=== PATIENT | male | born 1970 | race African-American/Black ===

== ENCOUNTER 2021-12-23 12:17 | Outpatient (CLI) | payer OTHER | END 2021-12-23 12:18 | disposition home or self-care (01) | LOC: CSHMRI 12:17 | PROVIDERS: ATTEND Family Medicine | DX: S43.421D Sprain of right rotator cuff capsule, subsequent encounter (principal); S46.211D Strain of muscle, fascia and tendon of other parts of biceps, right arm, subsequent encounter; S46.011A Strain of muscle(s) and tendon(s) of the rotator cuff of right shoulder, initial encounter; S43.431A Superior glenoid labrum lesion of right shoulder, initial encounter ==